=== PATIENT | female | born 2000 | race Hispanic/Latino ===

== ENCOUNTER 2025-02-24 17:36 | Emergency (ER) | payer OTHER ==
[2025-02-24] MEDS ORDERED: ADENOSINE 6 MG/ 2ML VIAL IV ONE (17:49)
[2025-02-24] MEDS ORDERED: MAGNESIUM SULFATE 1 gm IVPB 1 GM/100 ML BAG IV ONE (17:50)
[2025-02-24] MEDS ORDERED: NA CHLORIDE 0.9% 1,000 ML ONE (17:50)
[2025-02-24 18:03] LABS: Absolute Lymphocytes (CBC) 3.1 K/uL (0.7-4.9); Hematocrit 44.3 % (36.0-45.0); Hemoglobin 14.9 g/dL (12.0-15.0); MCH 30.7 pg (27.0-35.0); MCHC 33.7 g/dL (32.0-36.0); MCV 91.1 fL (80-100); MPV 7.3 fL (7.6-11.3); Nucleated RBC Absolute Count 0.0 (0-0); Nucleated Red Blood Cells % 0.0 % (0-0); RBC Red Blood Cell Count 4.86 M/uL (3.86-4.86); White Blood Count 6.10 thou/uL (4.3-10.9)
[2025-02-24 18:27] LABS: Anion Gap 9.6 mEq/L (5.0-15.0); BUN Blood Urea Nitrogen 12.0 mg/dL (7-18); Glucose Level 115.0 mg/dL (74-106); Magnesium 2.0 mg/dL (1.6-2.4); Potassium 3.6 mEq/L (3.5-5.1); Thyroid Stimulating Hormone 1.98 uIU/mL (0.358-3.740); Troponin High Sensitivity 4.6 pg/mL (<58.9)
--- NOTE | 2025-02-24 18:33 | RAD REPORT ---
EXAMINATION: ONE VIEW CHEST XR CLINICAL INDICATION: Female, 24 years old.,PALPITATIONS TECHNIQUE: Frontal chest projection is submitted. Examination is limited by patient positioning and t echnique. COMPARISON: No prior exam. FINDINGS: The lungs are well inflated and clear. No pneumothorax or sizable effusion. The heart is normal in s ize. Mediastinal contours are unremarkable. IMPRESSION: No acute intrathoracic abnormalities.
--- NOTE | 2025-02-24 19:02 | ER ---
Nurse's Notes [facility] Name: Shelly Marino Age: 24 yrs Sex: Female : 2000 Arrival Date: 02/24/2025 Time: 17:36 Bed 6 Private MD: Diagnosis: Supraventricular tachycardia Presentation: 02/24 17:48 Chief complaint: Patient states: CARDIAC PALPITATIONS THAT STARTED 45 MINS AGO. PT dd2 REPORTS HX OF SVT WITH ABRASION. Coronavirus screen: At this time, the client does not indicate any symptoms associated with coronavirus-19. Ebola Screen: No symptoms or risks identified at this time. Initial Sepsis Screen: Does the patient meet any 2 criteria? No. Patient's initial sepsis screen is negative. Does the patient have a suspected source of infection? No. Patient's initial sepsis screen is negative. Risk Assessment: Do you want to hurt yourself or someone else? Patient reports no desire to harm self or others. Onset of symptoms was February 24, 2025. 17:48 Method Of Arrival: Ambulatory dd2 17:48 Acuity: SHARI 2 dd2 Triage Assessment: 17:50 General: Appears distressed, Behavior is calm, cooperative, appropriate for age. Pain: dd2 Denies pain. Cardiovascular: Reports palpitations, Rhythm is SVT Chest pain is denied. Historical: - Allergies: 17:50 No Known Allergies; dd2 - PMHx: 17:50 SVT; dd2 - PSHx: 17:50 CARDIAC ABLATION; dd2 - Immunization history:: Adult Immunizations up to date. - Infectious Disease History:: Denies. - Social history:: Smoking status: Patient denies any tobacco usage or history of. Screenin:10 [facility] ED Fall Risk Assessment (Adult) History of falling in the last 3 months, af3 including since admission No falls in past 3 months (0 pts) Confusion or Disorientation No (0 pts) Intoxicated or Sedated No (0 pts) Impaired Gait No (0 pts) Mobility Assist Device Used No (0 pt) Altered Elimination No (0 pt) Score/Fall Risk Level 0 - 2 = Low Risk Oriented to surroundings, Maintained a safe environment, Educated pt \T\ family on fall prevention, incl call for assistance when getting out of bed. Abuse screen: Denies threats or abuse. Denies injuries from another. Nutritional screening: No deficits noted. Tuberculosis screening: No symptoms or risk factors identified. Assessment: 17:42 General: Appears in no apparent distress. uncomfortable, well groomed, well developed, af3 Behavior is calm, cooperative, appropriate for age. 17:42 Pain: Denies pain. Neuro: Level of Consciousness is awake, alert, obeys commands, af3 Oriented to person, place, time, situation, Appropriate for age. Cardiovascular: Reports palpitations, shortness of breath, Patient's skin is warm and dry. Rhythm is SVT Chest pain is denied. Respiratory: Airway is patent Respiratory effort is even, unlabored, Respiratory pattern is regular, symmetrical. Derm: Skin is intact, Skin is pink, warm \T\ dry. 17:53 Reassessment: Dr. Khan and Gerri TRAIN ANNOUNCER at bedside for adenocard administration. af3 18:38 Reassessment: Patient appears in no apparent distress at this time. No changes from af3 previously documented assessment. Patient and/or family updated on plan of care and expected duration. Pain level reassessed. 19:11 Reassessment: Patient appears in no apparent distress at this time. Patient and/or ph family updated on plan of care and expected duration. Pain level reassessed. Patient is alert, oriented x 3, equal unlabored respirations, skin warm/dry/pink. Vital Signs: 17:48 BP 147 / 114; Pulse 237; Resp 17; Pulse Ox 99% ; Weight 74.5 kg; Pain 0/10; dd2 18:08 BP 127 / 92; Pulse 95; Resp 22; Pulse Ox 100% on R/A; af3 18:39 BP 135 / 96; Pulse 98; Resp 17; Pulse Ox 100% on R/A; af3 17:48 Pain Scale: Adult dd2 Vitals: 18:08 Cardiac Rhythm Assessment Sinus rhythm. af3 ED Course: 17:39 Patient arrived in ED. ts1 17:41 Karish[facility] Simon [facility]C [facility] kb 17:41 Chris Khan MD is Attending Physician. kb 17:43 Arm band placed on Patient placed in an exam room, on a stretcher. ll1 17:49 Beverly Venegas, NAHOMI is Primary Nurse. ph 17:50 Triage completed. dd2 17:50 Inserted saline lock: 20 gauge in left antecubital area, using aseptic technique. Blood af3 collected. Flushed with 10 mL NS. 17:50 No provider procedures requiring assistance completed. Initial lab(s) drawn, by me, af3 sent to lab. EKG done, by ED staff, reviewed by Karishma GLASER. 18:10 Patient has correct armband on for positive identification. Bed in low position. Call af3 light in reach. Provided Education on: call light use . 18:20 XRAY Chest (1 view) In Process Unspecified. EDMS 19:12 IV discontinued, intact, bleeding controlled, No redness/swelling at site. Pressure ph dressing applied. Administered Medications: 17:55 Drug: Adenocard IVP 6 mg IVP once Route: IVP; Site: left antecubital; af3 18:03 Follow up: Response: No adverse reaction; Cardiac rhythm changed af3 18:02 Drug: NS 0.9% IV 1000 ml IV at 1000 ml once; to be given as a bolus over 60 minutes af3 Route: IV; Rate: 1000 ml; Site: left antecubital; 19:12 Follow up: Response: No adverse reaction; IV Status: Completed infusion; IV Intake: ph 1000ml 18:02 Drug: Magnesium Sulfate IVPB 1 grams IVPB once over 1 hrs Route: IVPB; Infused Over: 1 af3 hrs; Site: left antecubital; 18:35 Follow up: Response: No adverse reaction; IV Status: Completed infusion ph Medication: 18:10 VIS not applicable for this client. af3 Intake: 19:12 IV: 1000ml; Total: 1000ml. ph Outcome: 19:01 Discharge ordered by MD. person 19:13 Discharged to home ambulatory, ph 19:13 Condition: good 19:13 Discharge instructions given to patient, Instructed on discharge instructions, follow up and referral plans. Demonstrated understanding of instructions, follow-up care, 19:13 Patient left the ED. ph Signatures: Dispatcher [employer] EDMS Karishma Simon FNP-C FNP-Ckb Hall, Patricia RN RN ph Eber Pierre RN RN ll1 Cathi Zamora PAS PAS ts1 Francine Chatterjee RN RN af3 KAROLINA HERNANDEZ RN RN dd2
--- NOTE | 2025-02-24 19:02 | EDPHYS ---
Physician Documentation [facility] Name: Shelly Marino Age: 24 yrs Sex: Female : 2000 Arrival Date: 02/24/2025 Time: 17:36 Bed 6 Private MD: ED Physician Chris Khan HPI: 02/24 18:03 This 24 yrs old Female presents to ER via Ambulatory with complaints of kb Palpitations. 18:03 Pt is a 24 year old female who presents for palpitations that started at 1700. Reports kb history of SVT, takes metoprolol and has had an ablasion. States she has tried to vagal without relief. . Historical: - Allergies: 17:50 No Known Allergies; dd2 - PMHx: 17:50 SVT; dd2 - PSHx: 17:50 CARDIAC ABLATION; dd2 - Immunization history:: Adult Immunizations up to date. - Infectious Disease History:: Denies. - Social history:: Smoking status: Patient denies any tobacco usage or history of. ROS: 17:58 Constitutional: As per HPI kb Exam: 17:50 ECG was reviewed by the Attending Physician. kb 17:58 Constitutional: This is a well developed, well nourished patient who is awake, alert, kb and in no acute distress. Head/Face: Normocephalic, atraumatic. ENT: Moist Mucous membranes Respiratory: Respirations even and unlabored. No increased work of breathing. Talking in full sentences Skin: Warm, dry with normal turgor. Normal color. MS/ Extremity: Pulses equal, no cyanosis. Neurovascular intact. Full, normal range of motion. Neuro: Awake and alert, GCS 15, oriented to person, place, time, and situation. 17:58 Cardiovascular: Rate: tachycardic, 17:58 ECG was reviewed by the Attending Physician. kb Vital Signs: 17:48 BP 147 / 114; Pulse 237; Resp 17; Pulse Ox 99% ; Weight 74.5 kg; Pain 0/10; dd2 18:08 BP 127 / 92; Pulse 95; Resp 22; Pulse Ox 100% on R/A; af3 18:39 BP 135 / 96; Pulse 98; Resp 17; Pulse Ox 100% on R/A; af3 17:48 Pain Scale: Adult dd2 MDM: 17:42 Medical Screening Exam initiated kb 17:50 Independent interpretation of the following test(s) in the Emergency Department Cardiac kb monitor: rate is 232 beats/min, Rhythm is supraventricular tachycardia. 18:02 Data reviewed: vital signs, nurses notes. kb 18:03 Independent interpretation of the following test(s) in the Emergency Department Cardiac kb monitor: rate is 86 beats/min, Rhythm is normal sinus rhythm, Interpretation: normal rate, normal rhythm. 18:05 Differential diagnosis: arrythmia, dehydration, stress disorder. kb 18:47 Counseling: I had a detailed discussion with the patient and/or guardian regarding the kb historical points, exam findings, and any diagnostic results supporting the discharge/admit diagnosis, lab results, radiology results, the need for outpatient follow up, a database design analyst, to return to the emergency department if symptoms worsen or persist or if there are any questions or concerns that arise at home. 02/24 17:45 Order name: Basic Metabolic Panel; Complete Time: 18:33 kb 02/24 17:45 Order name: CBC with Diff; Complete Time: 18:06 kb 02/24 17:45 Order name: Magnesium; Complete Time: 18:33 kb 02/24 17:45 Order name: Troponin HS; Complete Time: 18:33 kb 02/24 17:45 Order name: TSH; Complete Time: 18:33 kb 02/24 17:45 Order name: XRAY Chest (1 view); Complete Time: 18:34 kb 02/24 17:45 Order name: Cardiac monitoring; Complete Time: 18:03 kb 02/24 17:45 Order name: EKG - Nurse/Tech; Complete Time: 18:03 kb 02/24 17:45 Order name: IV Saline Lock; Complete Time: 18:03 kb 02/24 17:45 Order name: Labs collected and sent; Complete Time: 18:03 kb 02/24 17:45 Order name: O2 Per Protocol; Complete Time: 18:03 kb 02/24 17:45 Order name: O2 Sat Monitoring; Complete Time: 18:03 kb EC:50 Rate is 226 beats/min. Rhythm is regular. QRS [place] is Normal. QRS interval is normal at kb 68 msec. QT interval is normal at 364 msec. Clinical impression: SVT. 17:58 Rate is 87 beats/min. Rhythm is regular. QRS [place] is Normal. CT interval is normal at kb 134 msec. QRS interval is normal at 86 msec. QT interval is normal at 438 msec. Clinical impression: Normal ECG. Administered Medications: 17:55 Drug: Adenocard IVP 6 mg IVP once Route: IVP; Site: left antecubital; af3 18:03 Follow up: Response: No adverse reaction; Cardiac rhythm changed af3 18:02 Drug: NS 0.9% IV 1000 ml IV at 1000 ml once; to be given as a bolus over 60 minutes af3 Route: IV; Rate: 1000 ml; Site: left antecubital; 19:12 Follow up: Response: No adverse reaction; IV Status: Completed infusion; IV Intake: ph 1000ml 18:02 Drug: Magnesium Sulfate IVPB 1 grams IVPB once over 1 hrs Route: IVPB; Infused Over: 1 af3 hrs; Site: left antecubital; 18:35 Follow up: Response: No adverse reaction; IV Status: Completed infusion ph Disposition: 02/25 07:02 Co-signature as Attending Physician, Chris Khan MD I reviewed the patient's care rn provided by the Advanced Practice Provider and agree with the diagnosis and treatment plan. Disposition Summary: 02/24/25 19:01 Discharge Ordered Notes: Location: Home Condition: Stable kb Diagnosis - Supraventricular tachycardia kb Followup: kb - With: Emergency Department - When: As needed - Reason: Worsening of condition Followup: kb - With: Private Physician - When: 2 - 3 days - Reason: Recheck today's complaints, Continuance of care, Re-evaluation by your physician Discharge Instructions: - Discharge Summary Sheet kb - Supraventricular Tachycardia, Adult, [id number] kb Forms: - Medication Reconciliation Form kb - Antibiotic Education kb - Prescription Opioid Use kb - Patient Portal Instructions kb - Leadership Thank You Letter kb Critical care time excluding procedures: 02/24 18:47 Critical care time: Bedside Care: 20 minutes, Consultation: 11 minutes. Total time: 31 kb minutes Signatures: Dispatcher [employer] Karishma Pozo FNP-C FNP-Chris Cheung MD MD rn Lewis, Lynsay, RN RN ll1 Francine Chatterjee RN RN af3 KAROLINA HERNANDEZ RN RN dd2 Beverly Venegas RN ph Corrections: (The following items were deleted from the chart) 17:46 17:46 BASIC METABOLIC PANEL+C.LAB.BRZ ordered. EDMS EDMS 17:46 17:46 CBC+H.LAB.BRZ ordered. EDMS EDMS 17:46 17:46 MAGNESIUM+C.LAB.BRZ ordered. EDMS EDMS 17:46 17:46 Troponin High Sensitivity+C.LAB.BRZ ordered. EDMS EDMS 17:46 17:46 THYROID STIMULAT HORMONE+C.LAB.BRZ ordered. EDMS EDMS 17:46 17:46 Chest Single View+RAD.RAD.BRZ ordered. EDMS EDMS
[2025-02-24 19:42] VITALS: O2SAT 100
[2025-02-24 19:44] VITALS: BP 135/96
== END 2025-02-24 19:13 | disposition home or self-care (01) ==
LOC: ER 17:36
DX: I47.10 Supraventricular tachycardia, unspecified (principal)
CPT/HCPCS: 96365; 96361; 93005 ×2; 85025; 80048; 36415; 83735; 84443; 84484; 71045; 96375; 99285; J0153; J3475; J7030